=== PATIENT | female | born 1990 | race Caucasian/White ===

== ENCOUNTER 2017-10-21 19:31 | Emergency (ER) | payer OTHER ==
[~2017-10-21] VITALS: Ht 162.6 cm; Wt 54.8 kg
[2017-10-21] MEDS ORDERED: DEXAMETHASONE 4 MG TABLET PO STA (20:13)
[2017-10-21] MEDS ORDERED: DEXAMETHASONE 4 MG TABLET ONE (20:24)
[2017-10-21] MEDS ORDERED: KETOROLAC 30 MG/1 ML IM ONE (21:00)
[2017-10-21] MEDS ORDERED: KETOROLAC 30 MG/1 ML ONE (21:12)
[2017-10-21 21:24] LABS: RAPID INFLUENZA A POSITIVE (Negative); RAPID INFLUENZA B Negative (Negative)
[2017-10-21 22:22] VITALS: BP 116/75
== END 2017-10-21 22:25 | disposition home or self-care (01) ==
LOC: ED 22:19
DX: J09.X2 Influenza due to identified novel influenza A virus with other respiratory manifestations (principal); B34.9 Viral infection, unspecified
CPT/HCPCS: 71020; 87400; 96372; 99285; J1885; J7512

== ENCOUNTER 2018-12-23 16:30 | Emergency (ER) | payer OTHER ==
[~2018-12-23] VITALS: Ht 162.6 cm; Wt 54.7 kg
[2018-12-23 16:47] VITALS: BP 135/95
[2018-12-23] MEDS ORDERED: IBUPROFEN 200 MG TABLET ONE (17:05)
[2018-12-23 17:17] LABS: RAPID INFLUENZA A Negative (Negative); RAPID INFLUENZA B Negative (Negative)
[2018-12-23] MEDS ORDERED: IBUPROFEN 200 MG TABLET PO ONE (17:30)
--- NOTE | 2018-12-23 17:49 | NUR ---
Patient/Caregiver given discharge instructions and they have confirmed that they understand the instructions. Patient ambulatory with steady gait.
== END 2018-12-23 17:50 | disposition home or self-care (01) ==
LOC: ED 17:20
DX: H65.02 Acute serous otitis media, left ear (principal); B34.9 Viral infection, unspecified; F17.200 Nicotine dependence, unspecified, uncomplicated
CPT/HCPCS: 87400; 99283